=== PATIENT | female | born 1985 | race Caucasian/White ===

== ENCOUNTER 2017-03-27 12:19 | Emergency (ER) | payer BC ==
[~2017-03-27] VITALS: Ht 162.6 cm; Wt 81.8 kg
[2017-03-27 12:32] VITALS: TEMP 36.6; Ht 162.6 cm; Wt 81.8 kg
[2017-03-27] MEDS ORDERED: LORAZEPAM 1 MG TAB SL STA (12:40)
[2017-03-27 12:47] VITALS: O2SAT 100
--- NOTE | 2017-03-27 13:02 | DIAGNOSTIC IMAGING REPORT ---
CHEST ONE VIEW PORTABLE CLINICAL HISTORY: Fever. Sepsis. COMPARISON STUDY: No previous studies for comparison. FINDINGS: Lung volumes are normal. No pneumothorax or pleural effusion is identified. No consolidation is identified. Pulmonary vascularity is normal. Median sternotomy wires are present. Cardiomediastinal silhouette is normal. IMPRESSION: No acute cardiopulmonary findings. Electronically signed by: Viral Jolly M.D. 03/27/2017 1:01 PM Dictated Date/Time: 03/27/2017 1:01 PM
[2017-03-27 13:05] LABS: POINT OF CARE TROPONIN I < 0.030 ng/ml (0-0.045)
[2017-03-27 13:13] LABS: BASO % 0.2 %; BASO ABS # 0.02 K/uL (0-0.2); COMPLETE YES; EOS % 0.7 %; HEMATOCRIT 41.4 % (37-47); IG% 0.2 %; LYMPH % 21.8 %; MEAN CELL VOLUME 90.2 fL (80-100); MEAN CORPUSCULAR HEMOGLOBIN 29.8 pg (25-34); MEAN CORPUSCULAR HGB CONC 33.1 g/dl (32-36); MEAN PLATELET VOLUME 9.5 fL (7.4-10.4); MONO % 10.3 %; NEUT % 66.8 %; PLATELET COUNT 305 K/uL (130-400); RED BLOOD COUNT 4.59 M/uL (4.2-5.4); WHITE BLOOD COUNT 10.09 K/uL (4.8-10.8)
[2017-03-27 13:21] LABS: BUN/CREATININE RATIO 13.8 (10-20); CALCIUM 9.3 mg/dl (8.5-10.1); CREATININE 0.81 mg/dl (0.60-1.20); POTASSIUM 3.3 mmol/L (3.5-5.1)
[2017-03-27] MEDS ORDERED: ASPI81TA28 PO (13:26)
[2017-03-27] MEDS ORDERED: CITA40TA12 PO (13:26)
[2017-03-27] MEDS ORDERED: CLR10 PO (13:26)
[2017-03-27] MEDS ORDERED: PANT40TA PO (13:26)
[2017-03-27] MEDS ORDERED: OPTIRAY 320 IV PRN (13:30)
[2017-03-27 13:32] LABS: THYROID STIMULATING HORMONE 1.04 uIu/ml (0.300-4.500)
--- NOTE | 2017-03-27 14:33 | DIAGNOSTIC IMAGING REPORT ---
CT ANGIOGRAPHY OF THE CHEST, PULMONARY EMBOLUS PROTOCOL CLINICAL HISTORY: Shortness of breath and elevated d-dimer. COMPARISON STUDY: Chest radiograph March 27, 2017. TECHNIQUE: Following IV administration of 94 mL of Optiray-320, helical axial images of the chest were obtained utilizing the pulmonary embolus protocol. Maximal intensity projections and sagittal and coronal reformats were viewed on an independent 3D workstation. IV contrast was administered without complication. A dose lowering technique was utilized adhering to the principles of ALARA. CT DOSE: 278.48 mGy.cm FINDINGS: No pulmonary emboli are identified. There are median sternotomy wires. There is no evidence of thoracic aortic dissection. The size of the heart is normal. No enlarged axillary, mediastinal or hilar lymph nodes are present. No pneumothorax or pleural effusion is present. Central airways are patent. Groundglass opacity suggest atelectasis. There is no consolidation to suggest pneumonia. Bony thorax and upper abdomen are unremarkable. IMPRESSION: 1. No pulmonary emboli identified. 2. No acute intrathoracic findings. Electronically signed by: Viral Jolly M.D. 03/27/2017 2:32 PM Dictated Date/Time: 03/27/2017 2:25 PM
--- NOTE | 2017-03-27 14:38 | EMERGENCY ROOM VISIT NOTE ---
History Report prepared by Tequila: Maame Yoder Under the Supervision of: Dr. Glen Garay D.O. First contact with patient: 12:35 Chief Complaint: SHORTNESS OF BREATH Stated Complaint: SOB, HEART BURN Nursing Triage Summary: pt reports chest pain and sob started yesterday described as burning pressure History of Present Illness The patient is a 31 year old female who presents to the Emergency Room with complaints of worsening shortness of breath that started yesterday. She reports yesterday she developed a "burning" type pain that started in her chest and also shortness of breath. At first, she thought her chest pain was "heartburn", but it persisted. Today her shortness of breath worsened, so she came to the ED. She admits to a history of panic attacks and notes her symptoms feel similar. Source of History: patient Onset: yesterday Position: chest Quality: other (shortness of breath) Timing: worsening Associated Symptoms: + chest pain Review of Systems See HPI for pertinent positives & negatives. A total of 10 systems reviewed and were otherwise negative. Past Medical & Surgical Medical Problems: (1) Anxiety (2) Depression Social History Smoking Status: Never Smoker Alcohol Use: occasionally Drug Use: none Marital Status: Housing Status: lives with family Occupation Status: employed Current/Historical Medications Scheduled Aspirin (Aspirin Ec), 81 MG PO DAILY Citalopram Hydrobromide (Celexa), 40 MG PO QPM Loratadine (Claritin), 10 MG PO DAILY Pantoprazole (Protonix), 40 MG PO DAILY Allergies Coded Allergies: Amoxicillin (Unverified Allergy, Unknown, hives , 03/27/17) Sulfa Antibiotics (Unverified Allergy, Unknown, White Bumps on Xi, 03/27) Physical Exam Vital Signs Date Time Temp Pulse Resp B/P (MAP) Pulse Ox O2 Delivery O2 Flow Rate FiO2 03/27/17 14:00 109/65 03/27/17 13:49 79 16 97 03/27/17 13:30 102/68 03/27/17 13:19 80 23 98 03/27/17 13:00 108/65 03/27/17 12:49 74 17 99 03/27/17 12:47 100 Room Air 03/27/17 12:45 112/71 03/27/17 12:44 72 03/27/17 12:32 36.6 77 18 109/66 100 Room Air Physical Exam CONSTITUTIONAL/VITAL SIGNS: Reviewed / noted above. GENERAL: Non-toxic in appearance. Appears mildly anxious. INTEGUMENTARY: Warm, dry, and [place]. HEAD: Normocephalic. EYES: without scleral icterus or trauma. ENT/OROPHARYNX: clear and moist. LYMPHADENOPATHY/NECK: Is supple without lymphadenopathy or meningismus. RESPIRATORY: Lungs clear and equal. CARDIOVASCULAR: Regular rate and rhythm. GI/ABDOMEN: Soft and nontender. No organomegaly or pulsatile mass. No rebound or guarding. Normal bowel sounds. EXTREMITIES: Warm and well perfused. BACK: No CVA tenderness. NEUROLOGICAL: Intact without focal deficits. PSYCHIATRIC: normal affect. MUSCULOSKELETAL: Normally developed with good muscle tone. Medical Decision & Procedures ER Provider Diagnostic Interpretation: Radiology results as stated below per my review and radiologist interpretation: CHEST ONE VIEW PORTABLE CLINICAL HISTORY: Fever. Sepsis. COMPARISON STUDY: No previous studies for comparison. FINDINGS: Lung volumes are normal. No pneumothorax or pleural effusion is identified. No consolidation is identified. Pulmonary vascularity is normal. Median sternotomy wires are present. Cardiomediastinal silhouette is normal. IMPRESSION: No acute cardiopulmonary findings. Electronically signed by: Viral Jolly M.D. 03/27/2017 1:[address] ANGIOGRAPHY OF THE CHEST, PULMONARY EMBOLUS PROTOCOL CLINICAL HISTORY: Shortness of breath and elevated d-dimer. COMPARISON STUDY: Chest radiograph March 27, 2017. TECHNIQUE: Following IV administration of 94 mL of Optiray-320, helical axial images of the chest were obtained utilizing the pulmonary embolus protocol. Maximal intensity projections and sagittal and coronal reformats were viewed on an independent 3D workstation. IV contrast was administered without complication. A dose lowering technique was utilized adhering to the principles of ALARA. CT DOSE: 278.48 mGy.cm FINDINGS: No pulmonary emboli are identified. There are median sternotomy wires. There is no evidence of thoracic aortic dissection. The size of the heart is normal. No enlarged axillary, mediastinal or hilar lymph nodes are present. No pneumothorax or pleural effusion is present. Central airways are patent. Groundglass opacity suggest atelectasis. There is no consolidation to suggest pneumonia. Bony thorax and upper abdomen are unremarkable. IMPRESSION: 1. No pulmonary emboli identified. 2. No acute intrathoracic findings. Electronically signed by: Viral Jolly M.D. 03/27/2017 2:32 PM Laboratory Results 03/27/17 12:40 Red Blood Count 4.59, Mean Corpuscular Volume 90.2, Mean Corpuscular Hemoglobin 29.8, Mean Corpuscular Hemoglobin Concent 33.1, Mean Platelet Volume 9.5, Neutrophils (%) (Auto) 66.8, Lymphocytes (%) (Auto) 21.8, Monocytes (%) (Auto) 10.3, Eosinophils (%) (Auto) 0.7, Basophils (%) (Auto) 0.2, Neutrophils # (Auto ) 6.74, Lymphocytes # (Auto) 2.20, Monocytes # (Auto) 1.04, Eosinophils # (Auto ) 0.07, Basophils # (Auto) 0.02 03/27/17 12:40 Test 03/27/17 12:40 03/27/17 12:45 White Blood Count 10.09 K/uL (4.8-10.8) Red Blood Count 4.59 M/uL (4.2-5.4) Hemoglobin 13.7 g/dL (12.0-16.0) Hematocrit 41.4 % (37-47) Mean Corpuscular Volume 90.2 fL (80-100) Mean Corpuscular Hemoglobin 29.8 pg (25-34) Mean Corpuscular Hemoglobin Concent 33.1 g/dl (32-36) Platelet Count 305 K/uL (130-400) Mean Platelet Volume 9.5 fL (7.4-10.4) Neutrophils (%) (Auto) 66.8 % Lymphocytes (%) (Auto) 21.8 % Monocytes (%) (Auto) 10.3 % Eosinophils (%) (Auto) 0.7 % Basophils (%) (Auto) 0.2 % Neutrophils # (Auto) 6.74 K/uL (1.4-6.5) Lymphocytes # (Auto) 2.20 K/uL (1.2-3.4) Monocytes # (Auto) 1.04 K/uL (0.11-0.59) Eosinophils # (Auto) 0.07 K/uL (0-0.5) Basophils # (Auto) 0.02 K/uL (0-0.2) RDW Standard Deviation 42.0 fL (36.4-46.3) RDW Coefficient of Variation 12.9 % (11.5-14.5) Immature Granulocyte % (Auto) 0.2 % Immature Granulocyte # (Auto) 0.02 K/uL (0.00-0.02) Anion Gap 7.0 mmol/L (3-11) Est Creatinine Clear Calc Drug Dose 102.2 ml/min Estimated GFR () 110.6 Estimated GFR (Non- 95.4 BUN/Creatinine Ratio 13.8 (10-20) Calcium Level 9.3 mg/dl (8.5-10.1) Thyroid Stimulating Hormone (TSH) 1.040 uIu/ml (0.300-4.500) Bedside D-Dimer > 450 ng/mlFEU (0-450) Bedside Troponin I < 0.030 ng/ml (0-0.045) Laboratory results as stated above per my review. Medications Administered Medications (Trade) Dose Ordered Sig/Catie Route Start Time Stop Time Status Last Admin Dose Admin Lorazepam (Ativan Tab) 1 mg NOW STAT SL 03/27/17 12:40 03/27/17 12:41 DC 03/27/17 12:45 1 MG ECG Indication: SOB/dyspnea Rate (beats per minute): 70 Rhythm: normal sinus Findings: no acute ischemic change, no ectopy ED Course 1237: Previous medical records were reviewed. The patient was evaluated in room A4. A complete history and physical examination was performed. 1240: Ativan 1 mg SL. 1405: I reevaluated the patient. She is resting comfortably. 1440: I reevaluated the patient. She is feeling well and resting comfortably. I discussed her results and discharge instructions and she verbalized complete understanding and agreement. Medical Decision the differential was considered includes acute myocardial infarction, acute coronary syndrome, myocarditis, pericarditis, pericardial effusions /tamponad, esophageal perforation, thoracic aortic dissection, pulmonary embolism, pneumonia, pneumothorax, pancreatitis, shingles, acute cholecystitis, perforated abdominal viscus, myocardial infarction, acute coronary syndrome, myocarditis, pericarditis, pericardial effusions /tamponade, esophageal perforation, pulmonary embolism, pneumonia, pneumothorax, cardiomyopathy, congestive heart, anemia , COPD/asthma exacerbation. This is a 31-year-old female who presents to the ED with a chief complaint of shortness of breath and heartburn. The patient states that she had some heartburn yesterday. She had shortness of breath and sweating today. Denies any fevers, chills or cough. The patient does report a history of panic attacks. Her vital signs are normal. Physical exam was unremarkable. An EKG shows a normal sinus rhythm. Troponin was negative. CBC is normal, chest x- ray was negative for acute disease. PRP was normal, d-dimer was elevated. CT scan of the chest did not show PE or other acute disease. She was given Ativan po. She is stable for discharge. Medication Reconcilliation Current Medication List: was personally reviewed by me Blood Pressure Screening Patient's blood pressure: Normal blood pressure Blood pressure disposition: Did not require urgent referral Impression Primary Impression: Dyspnea Additional Impression: Anxiety Scribe Attestation The scribe's documentation has been prepared under my direction and personally reviewed by me in its entirety. I confirm that the note above accurately reflects all work, treatment, procedures, and medical decision making performed by me. Departure Information Dispostion Home / Self-Care Patient Instructions My [facility] Additional Instructions Follow-up with your doctor for further care and evaluation in 1-2 days. Return to the emergency department for worsening or new symptoms or any concerns. You have been examined and treated today on an emergency basis only. This is not a substitute for, or an effort to provide, complete comprehensive medical care. It is impossible to recognize and treat all injuries or illnesses in a single emergency department visit. It is therefore important that you follow up closely with your doctor. Call as soon as possible for an appointment. Problem Qualifiers
[2017-03-27 15:06] VITALS: BP 111/68; PULSE 74; O2SAT 97
== END 2017-03-27 15:12 | disposition home or self-care (01) ==
LOC: C.EDB 12:21 → C.EDA 15:12
DX: R06.00 Dyspnea, unspecified (principal); F41.9 Anxiety disorder, unspecified; F32.9 Major depressive disorder, single episode, unspecified; Z79.82 Long term (current) use of aspirin; Z79.899 Other long term (current) drug therapy